=== PATIENT | male | born 1950 | race Caucasian/White ===

== ENCOUNTER 2021-03-05 15:12 | Emergency (ER) | payer OTHER ==
--- OUTSIDE RECORDS SUMMARY | 2021-03-05 15:16 | XMS REPORT | Continuity of Care Document ---
:[address] [facility] t Address [address] [place] [address] Care Team Providers Name Role Phone Chris SNYDER Attending Clinician Doctor Unassigned, Name Attending Clinician Unavailable Provider, Urgent Care Attending Clinician Unavailable Jordon Brink Attending Clinician Jordon CHRISTY Attending Clinician Unavailable Ajibade_O_AH Attending Clinician Unavailable Ige-Odunuga_J_AH Attending Clinician Unavailable Ajibade_O_AH Admitting Clinician Unavailable Ige-[place]_J_AH Admitting Clinician Unavailable Payers Payer Name Policy Type Policy Number Effective Date Expiration Date S kristine [employer] [place] [id number] 2020 CLASSIC/VALUE 00:00:00 BCBS TRADITIONAL [id number] 2016 00:00:00 WELLFORMERLY [facility] [id number] 2019 [place] (MEDICARE 00:00:00 REPLACEMENT/ADVANTA GE - HMO) Problems Condition Condition Condition Status Onset Resolution Last Treating Co mments Source Name Details Category Date Date Treatment Clinician Date Obstructiv Obstructiv Disease Active U nivers e sleep e sleep 8-11 ity of apnea apnea 00:00: [address] Right knee Right knee Disease Active U nivers pain pain 2-09 ity of 00:00: [address] Calf Calf Disease Active Univers swelling swelling 1-24 ity of 00:00: [address] Swelling Swelling Disease Active Unive rs of lower of lower 1-24 [place] Leg DVT Leg DVT Disease Active Univers (deep (deep 1-24 ity of venous venous 00:00: [place] thromboemb thromboemb 00 Me dical olism), olism), Branch chronic, chronic, right right Essential Essential Disease Active Uni vers hypertensi hypertensi 1-15 it y of on on 00:00: [address] Allergic Allergic Disease Active Unive rs rhinitis rhinitis 1-15 ity of 00:00: [address] Allergies, Adverse Reactions, Alerts Allergy Allergy Status Severity Reaction(s) Onset Inactive Treating Comm ents Source Name Type Date Date Clinician NO KNOWN Drug Active Univers ALLERGIE Class ity of S [facility] Social History Social Habit Start Date Stop Date Quantity Comments Source Exposure to Not sure [facility] (event) [place] Tobacco use and 2020-08-21 2020-08-21 Never used Universit y of exposure 00:00:00 00:00:00 [facility] Alcohol intake 2020-08-21 2020-08-21 Current University of 00:00:00 00:00:00 non-drinker of [facility] alcohol (finding) [place] Tobacco Comment 2015-04-04 2015-04-04 Stopped 30 years Uni versity of 00:00:00 00:00:00 ago [facility] Alcohol Comment 2015-04-04 2015-04-04 occasional Universit y of 00:00:00 00:00:00 [facility] Sex Ass[birth year] At [birth year] Universit y of 00:00:00 00:00:00 [facility] Smoking Status Start Date Stop Date Source Never smoker [facility] Medications Ordered Filled Start Stop Current Ordering Indication Dosage Frequency Signature Comments Components Source Medication Medication Date Date Medication? Clinician (SIG) Name Name acetaminoph No 975mg 975 mg, U nivers en 08-22 06-04 Oral, ity of (TYLENOL) 18:15: 17:25 ONCE, 1 [place] tablet 975 00 :00 dose, Fri Medi brnedan mg 08/22/20 at Branch 1315, SHARMIN dextrometho Yes [id number] 10mL Take 10 mL Univers rphan-guaif 6-04 by mouth ity of enesin 00:00: every 6 [place] 10-100 mg/5 00 (six) Medical mL solution hours as Bran ch needed for Cough. azithromyci 0 Yes [id number] 250mg Take 1 Univers n 6-04 tablet by ity of (ZITHROMAX 00:00: mouth [place] Z-KIKO) 250 00 SEE-INSTRU Med ical mg tablet CTIONS. Branch Take 500 mg day 1, then 250 mg days 2 to 5. montelukast 0 Yes [id number] 10mg Take 1 Univers (SINGULAIR) 6-04 tablet by ity of 10 mg 00:00: mouth once [place] tablet 00 daily as Medical needed Branch (symptoms) . loratadine 0 Yes [id number] 10mg Take 1 Univers 10 mg 6-04 tablet by ity of tablet 00:00: mouth [place] 00 daily. Medical Branch benzonatate 0 Yes [id number] 100mg Take 1 Univers (TESSALON 6-03 capsule by ity of GARETTES) 100 00:00: mouth 3 [place] mg capsule 00 (three) Medica l times Branch daily. azelastine 0 Yes [id number] 1{spray Use 1 Univers 137 mcg 6-03 } [place] in ity of (0.1 %) 00:00: each [place] nasal spray 00 nostril 2 Med ical (two) Branch times daily. Use in each nostril as directed benzonatate 2020-0 Yes [id number] 100mg Take 1 Univers (TESSALON 6-03 capsule by ity of PERLES) 100 00:00: mouth 3 [place] mg capsule 00 (three) Medica l times Branch daily. azelastine 2020-0 Yes [id number] 1{spray Use 1 Univers 137 mcg 6-03 } [place] in ity of (0.1 %) 00:00: each [place] nasal spray 00 nostril 2 Med ical (two) Branch times daily. Use in each nostril as directed benzonatate 2020-0 Yes [id number] 100mg Take 1 Univers (TESSALON 6-03 capsule by ity of PERLES) 100 00:00: mouth 3 [place] mg capsule 00 (three) Medica l times Branch daily. azelastine Yes [id number] 1{spray Use 1 Univers 137 mcg 6-03 } [place] in ity of (0.1 %) 00:00: each [place] nasal spray 00 nostril 2 Med ical (two) Branch times daily. Use in each nostril as directed metFORMIN Yes 1000mg Take 1,000 Univers 1,000 mg 4-28 mg by ity of tablet 00:00: mouth 2 [place] (two) Medical times Branch daily with meals. metFORMIN Yes 1000mg Take 1,000 Univers 1,000 mg 4-28 mg by ity of tablet 00:00: mouth 2 [place] (two) Medical times Branch daily with meals. metFORMIN Yes 1000mg Take 1,000 Univers 1,000 mg 4-28 mg by ity of tablet 00:00: mouth 2 [place] (two) Medical times Branch daily with meals. aspirin 81 Yes 81mg Take 81 mg U nivers mg chewable 8-10 by mouth ity of tablet 14:07: daily. [address] aspirin 81 Yes 81mg Take 81 mg U nivers mg chewable 8-10 by mouth ity of tablet 14:07: daily. [address] aspirin 81 Yes 81mg Take 81 mg U nivers mg chewable 8-10 by mouth ity of tablet 14:07: daily. [address] furosemide Yes 40mg Take 1 Unive rs 40 mg 8-10 tablet by ity of tablet 00:00: mouth [address] [facility] Branch furosemide Yes 40mg Take 1 Unive rs 40 mg 8-10 tablet by ity of tablet 00:00: mouth [place] 00 daily. Medical Branch furosemide Yes 40mg Take 1 Unive rs 40 mg 8-10 tablet by ity of tablet 00:00: mouth [address] [facility] Branch triamcinolo Yes Apply to U nivers ne 0.1% in 09-22 affected ity o f eucerin 00:00: area(s) 2 [place] (COMPOUNDED 00 (two) Medical ) cream times Branch daily. Compounded : Kenalog 100mg in 240cc Eucerin cream [facility] Yes Apply to U nivers ne 0.1% in 09-22 affected ity o f eucerin 00:00: area(s) 2 [place] (COMPOUNDED 00 (two) Medical ) cream times Branch daily. Compounded : Kenalog 100mg in 240cc Eucerin cream triamcinolo Yes Apply to U nivers ne 0.1% in 09-22 affected ity o f eucerin 00:00: area(s) 2 [place] (COMPOUNDED 00 (two) Medical ) cream times Branch daily. Compounded : Kenalog 100mg in 240cc Eucerin cream clindamycin 2020- No 300mg Take 1 Un danay 300 mg 09-22 capsule by ity of capsule 00:00: 00:00 mouth 4 [place] 00 :00 (four) Medical times Branch daily. traMADOL No 50mg Take 1 Univer s (ULTRAM) 50 09-04 tablet by it y of mg tablet 00:00: 00:00 mouth [place] 00 :00 every 6 Medical (six) Branch hours as needed for Pain (scale 4-6). lisinopril- Yes [id number] 1{tbl} Take 1 Univers hydrochloro 2-08 tablet by ity of thiazide 00:00: mouth [place] 20-12.5 mg 00 daily. Medical per tablet Branch lisinopril- Yes [id number] 1{tbl} Take 1 Univers hydrochloro 2-08 tablet by ity of thiazide 00:00: mouth [place] 20-12.5 mg 00 daily. Medical per tablet Branch lisinopril- Yes [id number] 1{tbl} Take 1 Univers hydrochloro 2-08 tablet by ity of thiazide 00:00: mouth [place] 20-12.5 mg 00 daily. Medical per tablet Branch benzonatate 2020- No [id number] 100mg Take 1 Univers (TESSALON 04-28- capsule by ity of PERLES) 100 00:00: 00:00 mouth 3 [place] mg capsule 00 :00 (three) Medica l times Branch daily. loratadine 2020- No [id number] 10mg Take 1 Univers 10 mg 04-28- tablet by ity of tablet 00:00: 00:00 mouth [place] 00 :00 daily. Medical Branch Vitamin B12 Vitamin B12 Yes Sammy [address] [facility] [facility] [place] [facility] Furosemide Furosemide Yes Sammy [address] [facility] [place] once daily [facility] swelling [facility] Potassium Potassium Yes Sammy [address] [facility] [place] [facility] Aspir-81 Aspir-81 Yes Sammy [address] [place] [facility] Metformin Metformin Yes Sammy [address] HCl HCl [place] with meals [facility] Gabapentin Gabapentin Yes Sammy [address] [facility] [place] before [facility] Atorvastati Atorvastati Yes Sammy [address] n Calcium n Calcium [place] [facility] Lisinopril Lisinopril Yes Sammy [address] [facility] [place] [facility] Vitamin D3 Vitamin D3 Yes Sammy as C [facility] [place] directed [facility] Immunizations Ordered Filled Immunization Date Status Comments [facility] e Immunization Name Name Prevnar 13 Prevnar 13 2018-05-[address] [facility] - -Pneumonia Vaccine -Pneumonia Vaccine 00:00:00 [facility] Vital Signs Vital Name Observation Time Observation Value Comments Source Systolic blood 2020-08-22 19:00:00 124 mm[Hg] Univer sity of pressure [facility] Diastolic blood 2020-08-22 19:00:00 75 mm[Hg] Unive ity of [facility] Heart rate 2020-08-22 19:00:00 90 /min [facility] Respiratory rate 2020-08-22 19:00:00 23 /min [facility] Oxygen saturation in 2020-08-22 19:00:00 96 /min [facility] Arterial blood by [facility] Pulse oximetry Branch Body temperature 2020-08-22 18:13:[address] [facility] Body weight 2020-08-22 16:39:00 158.759 kg [facility] BMI 2020-08-22 16:39:00 47.47 kg/m2 [facility] Systolic blood 2020-08-21 20:41:00 147 mm[Hg] Univer sit of pressure [facility] Diastolic blood 2020-08-21 20:41:00 83 mm[Hg] [facility] Heart rate 2020-08-21 20:38:00 84 /min [facility] Body temperature 2020-08-21 20:38:[address] [facility] Respiratory rate 2020-08-21 20:38:00 18 /min [facility] Body height 2020-08-21 20:38:00 182.9 cm [facility] Body weight 2020-08-21 20:38:00 158.759 kg [facility] BMI 2020-08-21 20:38:00 47.47 kg/m2 [facility] Oxygen saturation in 2020-08-21 20:38:00 95 /min [facility] blood by [facility] Pulse oximetry Branch Procedures Procedure Date / Time Performed Performing Clinician Sour e URINALYSIS 2020-08-22 18:12:00 Kun Sexton [facility] COVID-19 (ID NOW RAPID 2020-08-22 17:30:00 Kun Sexton [facility] TESTING) [facility] LACTIC ACID WHOLE 2020-08-22 17:28:00 Kun Sexton [facility] BLOOD [facility] TROPONIN I 2020-08-22 17:27:00 Kun Sexton [facility] HEPATIC FUNCTION PANEL 2020-08-22 17:27:00 Kun Sexton [facility] ([id number]) Medical Branch (ALB,T.PRO,BILI T,BU/BC,ALT,AST,ALK PHOS) BASIC METABOLIC PANEL 2020-08-22 17:27:00 Kun Sexton [facility] (NA, K, CL, CO2, Medical Branch GLUCOSE, BUN, CREATININE, CA) CBC WITH DIFF 2020-08-22 17:27:00 Kun Sexton [facility] RAPID STREP SCREEN FOR 2020-08-22 17:27:00 Kun Sexton [facility] GROUP A Medical [place] ADC,CLC OR LCC ONLY - 2020-08-22 17:27:00 Kun Sexton [facility] INFLUENZA A & B DIRECT Medical B ranch ANTIGEN N-TERMINAL PRO-BNP 2020-08-22 17:27:00 Kun Sextonit y of [facility] XR CHEST 1 VW 2020-08-22 17:19:38 Kun Sexton [place] o f [facility] NOTICE OF PRIVACY 2020-08-22 16:27:36 Doctor Unassigned, No Univ [facility] PRACTICES Name Medical Branch POCT GRP A STREP 2020-08-21 00:00:00 Pao Christy [facility] ([facility]) [facility] Encounters Start End Encounter Admission Attending Care Care Encounter Source Date/Time Date/Time Type Type Clinicians Facility Department ID 2021-01-18 Emergency [facility] [id number] [facility]-12[facility]11 2020-12-11 Out[id number] [facility] 2020-12-05 2020-12-05 Outpatient [facility] [id number] [facility] 2020-11-28 2020-11-28 [facility] [id number] 2020-11-18 2020-11-18 Outpatient [facility] [id number] [facility] 2020-11-18 2020-11-18 Outpatient [facility] [id number] [facility] 2020-08-22 2020-08-22 Emergency Chris [facility] [id number] Univers 11:37:00 14:44:00 Kun Hannah [id number] i Dianelys [id number] [facility] [id number] [place] [id number] Branch 2020-08-22 2020-08-22 Orders Doctor STRAUSS [id number] Univers 00:00:00 00:00:00 Only Unassigned, LIVAN [id number] ity of [facility] [id number] [place] as [id number] [address] 2020-08-22 2020-08-22 Outpatient [facility] [id number] [facility] 2020-08-21 2020-08-21 Urgent Provider, [facility] Urgent Care [facility] [id number] Univers 15:33:52 16:22:38 Pao Potter [facility] [id number] ity of [place] [id number] [place] as Professio [id number] [address] Office [address] 2020-08-21 2020-08-21 Outpatient R [facility] [id number] Univers 15:40:00 15:40:00 [id number] ity [facility] 2020-08-21 2020-08-21 [facility] [id number] Univers 15:40:00 15:40:[address] [facility] 2020-08-14 2020-08-14 Outpatient [facility] [id number] [facility] 2020-05-16 2020-05-16 Outpatient [facility] [id number] [facility] 2020-04-28 2020-04-28 Outpatient [facility] [id number] [facility] 2020-04-21 2020-04-21 Outpatient [facility] [id number] [facility] 2020-04-14 2020-04-14 Outpatient [facility] [id number] [facility] 2020-03-31 2020-03-31 [id number] 2020-03-25 2020-03-25 [facility] [id number] 2020-03-24 2020-03-24 [facility] [id number] 2020-02-12 2020-02-12 [facility] [id number] 2020-02-07 2020-02-07 [facility] [id number] 2019-11-15 2019-11-15 Outpatient Ajibade_O_A VFP VFP [id number] [facility] 04:44:00 04:44:00 H [id number] Family Practic e 2019-11-15 2019-11-15 Outpatient Ajibade_O_A VFP VFP [id number] [facility] 04:44:00 04:44:00 H [id number] Family Practic e 2019-11-15 2019-11-15 Outpatient Ajibade_O_A VFP VFP [id number] [facility] 04:44:00 04:44:00 H [id number] Family Practic e 2019-11-07 2019-11-07 [facility] [id number] 10:41:00 10:41:00 t [facility] [place] [facility] Medicine Outpati ent Clinics 2019-11-07 2019-11-07 [facility] [id number] 08:30:00 08:30:00 t [facility] Medicine l Medicine Outpati ent Clinics 2019-08-07 2019-08-07 [facility] [id number] 08:45:00 08:45:00 t [facility] [place] [facility] Medicine Outpati ent Clinics 2019-08-07 2019-08-07 [facility] [id number] 08:15:00 08:15:00 t [employer] [facility] Medicine l Medicine Outpati ent Clinics 2019-05-09 2019-05-09 Outpatient Ige-Odunuga VFP VFP [id number] [facility] 07:23:00 07:23:00 _J_AH [id number] Family Practic e 2019-05-09 2019-05-09 Outpatient Ige-[place] VFP VFP [id number] [facility] 07:23:00 07:23:00 _J_AH [id number] Family Practic e 2019-03-07 2019-03-07 [facility] [id number] 13:15:00 13:15:00 t [employer] [facility] Medicine l Medicine Outpati ent Clinics 2019-02-27 2019-02-27 [facility] [id number] 17:01:00 17:01:00 t [employer] [facility] Medicine l Medicine Outpati ent Clinics 2018-12-13 2018-12-13 [facility] [id number] 10:45:00 10:45:00 t [employer] [facility] Medicine l Medicine Outpati ent Clinics 2018-12-05 2018-12-05 [facility] [id number] 10:43:00 10:43:00 t [employer] [facility] Medicine l Medicine Outpati ent Clinics 2018-11-28 2018-11-28 [facility] [id number] 10:28:00 10:28:00 t [employer] [facility] Medicine l Medicine Outpati ent Clinics 2018-09-08 2018-09-08 [facility] [id number] 10:58:00 10:58:00 t [employer] [facility] Medicine l Medicine Outpati ent Clinics 2018-05-24 2018-05-24 [facility] [id number] 11:15:00 11:15:00 t [place] [employer] [facility] Medicine l Medicine Outpati ent Clinics 2017-11-18 2017-11-18 [facility] [id number] 10:49:00 10:49:00 [facility] 2017-11-17 2017-11-17 [facility] [id number] 13:00:00 13:00:00 [facility] 2017-08-17 2017-08-17 [facility] [id number] 13:00:00 13:00:00 [facility] Results Test Description Test Time Test Comments Results Result Comments Source Urinalysis 2020-08-22 18:50:15 Test Item Value Reference Range Interpretation Comme nts APPEARANCE (test code = Clear Clear 1397769210) COLOR (test code = 1294929920) Yellow Yellow PH (test code = 4227080572) 4.8-8.0 SP GRAVITY (test code = 1.003-1.030 1981237082) GLU U QUAL (test code = Normal Normal 9036622037) BLOOD (test code = 1616021659) Negative Negative KETONES (test code = 1104756377) Negative Negative PROTEIN (test code = 2887-8) Negative Negative UROBILIN (test code = 2.0 mg/dL Normal A 6301989654) BILIRUBIN (test code = Negative Negative 6364223526) NITRITE (test code = 5154811234) Negative Negative LEUK OSMAN (test code = Negative Negative 7469515946) RBC/HPF (test code = 1278213562) See_Comment [Automated message] The system which ge nerated this result transmit morteza reference range: 0 - 3 HP F. The reference range was not used to interpret th is result as normal/abnormal . WBC/HPF (test code = 5244197268) <1 See_Comment [Automated message] The system which ge nerated this result transmit morteza reference range: 0 - 5 HP F. The reference range was not used to interpret th is result as normal/abnormal . BACTERIA (test code = Negative Negative 1130316533) MUCOUS (test code = 5367566715) Slight Negative LPF A SQ EPITH (test code = HPF 8116129105) Lab Interpretation (test code = Abnormal 76969-5) [facility] - INFLUENZA A & B DIRECT [id number] 18:25:12 Test Item Value Reference Range Interpretation Comments Influenza A (test code = 57526-4) Negative Negative Influenza B (test code = 75311-4) Negative Negative Lab Interpretation (test code = Normal 53696-6) [facility] FOR GROUP [id number] 18:19:32 Test Item Value Reference Range Interpretation Comments Streptococcus pyogenes (group A) Negative Negative antigen (test code = 32010-6) Lab Interpretation (test code = Normal 23387-1) [facility] [id number] 18:17:39 Test Item Value Reference Range Interpretation Comments TROPONIN I (test 0.000 ng/mL See_Comment [Automated code = 8081802507) message] The system which generated this result transmitted reference range : <=0.034. The reference range was not used to interpret this result as normal/abnormal . OTONIEL (test code = Equal or Less than OTONIEL) 0.034 ng/ml---Normal ?Note: Cardiac troponin begins to rise 3-4 hours after the onset of ischemia. Repeat in 4-6 hours if the sample was drawn within 3-4 hours of the onset of the symptom and found normal. Between 0.035 and 0.120 ng/mL--- Borderline. Questionable myocardial injury or necrosis ? ?Note: Serial measurement may be necessary to confirm or exclude the diagnosis of myocardial injury or necrosis; Clinical correlation (symptoms, EKGs, imaging studies, and others) required; Repeat in 4-6 hours if clinically indicated. ? Equal or Higher than 0.121 ng/mL---Abnormal. Myocardial Injury or Necrosis Likely ? Biotin has been reported to cause a negative bias, interpret results relative to patient's use of biotin. ? Lab Interpretation Normal (test code = 40972-5) [id number] 18:14:39 Test Item Value Reference Range Interpretation Comments NT-proBNP (test code 154 pg/mL See_Comment H [Autom ated = 6872622712) message] The system which generated this result transmitted reference range : <=125. The reference range was not used to interpret this result as normal/abnormal . OTONIEL (test code = OTONIEL) Biotin has been reported to cause a negative bias, interpret results relative to patient's use of biotin. Lab Interpretation Abnormal (test code = 39348-5) [facility] 1 [id number] 18:07:21 Low lung volume without infiltrate. RL 4728 CHEST SINGLE VIEW CLINICAL HISTORY: Short of breath ORDERING PHYSICIAN: ZARA SEXTON TECHNIQUE: Frontal view of chest COMPARISON: None available. FINDINGS: The cardiac silhouette is within normal limits. ?Low lung volumes withoutdiscrete infiltrate. Osseous structures are normal. [facility], Radiant Results Inft User - 08/22/2020 1:08 PM CDTFormatting of this note might be different from theoriginal.CHEST SINGLE VIEWCLINICAL HISTORY: Short of breathORDERING PHYSICIAN: KUN SEXTONTECHNIQUE: Frontal view of chestCOMPARISON: None available.FINDINGS:The cardiac silhouette is within normal limits. Low lung volumes withoutdiscrete infiltrate. Osseous structures are normal. IMPRESSIONLow lung volume without infiltrate.RL 4728 [facility] (NA, K, CL, CO2, GLUCOSE, BUN, CREATININE, CA)2020-08-22 18:06:40 Test Item Value Reference Range Interpretation Comments NA (test code = 139 mmol/L 135-145 6454722901) K (test code = 3.6 mmol/L 3.5-5.0 1839086542) CL (test code = 104 mmol/L 98-108 7012476389) CO2 TOTAL (test code = 29 mmol/L 23-31 7109464195) AGAP (test code = 2-16 0940175804) BUN (test code = 10 mg/dL 7-23 9610571282) GLUCOSE (test code = 115 mg/dL 70-110 H 6905276792) CREATININE (test code = 0.92 mg/dL 0.60-1.25 2470634294) CALCIUM (test code = 9.0 mg/dL 8.6-10.6 3507042605) eGFR (test code = mL/min/1.73m2 3924060342) OTONIEL (test code = OTONIEL) Association of Glomerular Filtration Rate (GFR) and Staging of Kidney Disease* + --+ --+ ------+| GFR (mL/min/1.73 m2) ?| With Kidney Damage ?| ?Without Kidney Damage+ --------+ --------+ +| ?>90 ?| ?Stage one ?| ? Normal ?+ ---+ ---+ -------+| ?60-89 ?| ?Stage two ?| ? Decreased GFR ? + --+ --+ ------+| ?30-59 ?| ?Stage three ?| ? Stage three ? + --+ --+ ------+| ?15-29 ?| ?Stage four ? | ? Stage four ?+ ---+ ---+ -------+| ?<15 (or dialysis) ? ?| ?Stage five ? | ? Stage five ?+ ---+ ---+ -------+ *Each stage assumes the associated GFR level has been in effect for at least three months. ?Stages 1 to 5, with or without kidney disease, indicate chronic kidney disease. Notes: Determination of stages one and two (with eGFR >59mL/min/1.73 m2) requires estimation of kidney damage for at least three months as defined by structural or functional abnormalities of the kidney, manifested by either:Pathological abnormalities or Markers of kidney damage (including abnormalities in the composition of the blood or urine or abnormalities in imaging tests). Lab Interpretation Abnormal (test code = 76733-8) [facility] (ALB, T.PRO, BILI T, BU/BC, ALT, AST, ALK PHOS)2020-08-22 18:06:40 Test Item Value Reference Range Interpretation Comments TOTAL BILI (test code = 5908925044) 0.7 mg/dL 0.1-1.1 BILI UNCON (test code = 9624609624) 0.6 mg/dL 0.1-1.1 BILI CONJ (test code = 8962584021) 0.0 mg/dL 0.0-0.3 T PROTEIN (test code = 9057684090) 7.1 g/dL 6.3-8.2 ALBUMIN (test code = 6587028961) 3.7 g/dL 3.5-5.0 ALK PHOS (test code = 8946159991) 81 U/L 34-122 ALTv (test code = 1742-6) 15 U/L 5-50 AST(SGOT) (test code = 0210891187) 18 U/L 13-40 Lab Interpretation (test code = Normal 52225-0) [facility]ID [facility])2020-08-22 18:02:55 Test Item Value Reference Range Interpretation Comments SARS-CoV-2 Rapid ID NOW Not Detected Not Detected (test code = 52693-1) OTONIEL (test code = OTONIEL) ID NOW COVID-19 Assay is an isothermal nucleic acid amplification test intended for the qualitative detection of nucleic acid from SARS-CoV-2 viral RNA in nasopharyngeal (FOOD EQUIPMENT SERVICE TECHNICIAN) specimens. It is used under Emergency Use Authorization (EUA) by FDA. The limit of detection (LOD) of the assay is 125 Genome Equivalents/mL. A positive result is indicative of the presence of SARS-CoV-2 RNA. ?Clinical correlation with patient history and other diagnostic information is necessary to determine patient infection status. A negative (Not Detected) result does not preclude SARS-CoV-2 infection. In patients with clinical symptoms and other tests that are consistent with SARS-CoV-2 infection, negative results should be treated as presumptive negative and a new specimen should be tested with alternative PCR molecular test. Invalid: Please collect a new specimen for repeat patient testing if clinically indicated. Lab Interpretation Normal (test code = 05907-0) [facility] with [id number] 17:47:54 Test Item Value Reference Range Interpretation Comments WBC (test code = See_Comment [Automated 4967-2) message] The sy stem which generated this result transmitted reference range : 4.20 - 10.70 10*3/?L. The reference range was not used to interpret this result as normal/abnormal . RBC (test code = See_Comment [Automated 801-8) message] The sy stem which generated this result transmitted reference range : 4.26 - 5.52 10*6/?L. The reference range was not used to interpret this result as normal/abnormal . HGB (test code = 12.9 g/dL 12.2-16.4 718-7) HCT (test code = 40.1 % 38.4-49.3 4544-3) MCV (test code = 86.6 fL 81.7-95.6 787-2) MCH (test code = 27.9 pg 26.1-32.7 785-6) MCHC (test code = 32.2 g/dL 31.2-35.0 786-4) RDW-SD (test code = 44.3 fL 38.5-51.6 16847-6) RDW-CV (test code = 14.1 % 12.1-15.4 788-0) PLT (test code = See_Comment [Automated 777-3) message] The sy stem which generated this result transmitted reference range : 150 - 328 10*3/ ?L. The reference r sharla was not used to interpret this result as normal/abnormal . MPV (test code = 10.4 fL 9.8-13.0 68816-2) NRBC/100 WBC (test See_Comment [Automat ed code = 1114751345) message] The system which generated this result transmitted reference range : 0.0 - 10.0 /100 WBCs. The refer ence range was not u sed to interpret th is result as normal/abnormal . NRBC x10^3 (test code <0.01 See_Comment [Auto mated = 1528616458) message] The s ystem which generated this result transmitted reference range : 10*3/?L. The reference range was not used to interpret this result as normal/abnormal . GRAN MAT (NEUT) % 73.4 % (test code = 770-8) IMM GRAN % (test code 0.40 % = 0441940364) LYMPH % (test code = 14.2 % 736-9) MONO % (test code = 8.8 % 5905-5) EOS % (test code = 2.6 % 713-8) BASO % (test code = 0.6 % 706-2) GRAN MAT x10^3(ANC) 7.47 10*3/uL 1.99-6.95 H (test code = 1085754133) IMM GRAN x10^3 (test 0.04 10*3/uL 0.00-0.06 code = 9360754265) LYMPH x10^3 (test code 1.45 10*3/uL 1.09-3.23 = 731-0) MONO x10^3 (test code 0.90 10*3/uL 0.36-1.02 = 742-7) EOS x10^3 (test code = 0.26 10*3/uL 0.06-0.53 711-2) BASO x10^3 (test code 0.06 10*3/uL 0.01-0.09 = 704-7) Lab Interpretation Abnormal (test code = 68430-8) [facility] Whole [id number] 17:34:52 Test Item Value Reference Range Interpretation Comments LACTIC ACID (test code = 1.69 mmol/L 0.50-2.20 7014962485) Lab Interpretation (test code = Normal 92356-6) [facility]2020-08-21 20:56:00 Test Item Value Reference Range Interpretation Comments POCT GP A STREP (test code = negative Negative - Negative 78966-9) [facility]"
[2021-03-05] MEDS ORDERED: LIDOCAINE 1% MPF 5 ML VIAL ONE ×2 (16:41→16:42)
[2021-03-05] MEDS ORDERED: BUPIVACAINE 0.5% PF 10 ML VIAL ONE (16:41)
[2021-03-05] MEDS ORDERED: TETANUS & DIPHTHERIA TOX,ADULT 0.5 ML VIAL ONE (16:41)
--- NOTE | 2021-03-05 17:43 | EDPHYS ---
Physician Documentation [facility] Name: Andrew Muñoz Age: 70 yrs Sex: Male : 1950 Arrival Date: 03/05/2021 Time: 15:15 Bed 5 Private MD: Juan Pablo [facility] ED Physician Doyle Tamez HPI: 03/05 16:40 This 70 yrs old Male presents to ER via Ambulatory with complaints of splinter in cp fingernail. 16:40 The patient or guardian reports a puncture wound, wood splinter, foreign body. The cp complaints affect the nailbed of right fourth finger. Onset: The symptoms/episode began/occurred 9 day(s) ago. Associated signs and symptoms: Pertinent negatives: cyanosis distally, decreased sensation distally, fever. 16:40 Severity of symptoms: in the emergency department the symptoms are unchanged, despite cp home interventions. Historical: - Allergies: 15:45 No Known Allergies; iw - Home Meds: 15:45 Lisinopril Oral [Active]; blood thinner [Active]; iw - PMHx: 15:45 Hypertensive disorder; Hypercholesterolemia; iw - PSHx: 15:45 None; iw - Immunization history:: Client reports receiving the 2nd dose of the Covid vaccine. - Social history:: Smoking status: Patient denies any tobacco usage or history of. ROS: 16:45 MS/extremity: Positive for puncture, of the proximal nailbed of right fourth finger, cp foreign body. 16:45 Constitutional: Negative for body aches, chills, fever, poor PO intake. cp 16:45 Cardiovascular: Negative for chest pain. 16:45 Respiratory: Negative for cough, shortness of breath. 16:45 Abdomen/GI: Negative for abdominal pain, nausea, vomiting, and diarrhea. 16:45 All other systems are negative. Exam: 16:50 Constitutional: The patient appears in no acute distress, alert, awake, non-toxic, well cp developed, well nourished. 16:50 Head/Face: Normocephalic, atraumatic. cp 16:50 Cardiovascular: Rate: normal. 16:50 Respiratory: the patient does not display signs of respiratory distress, Respirations: normal, no use of accessory muscles. 16:50 Abdomen/GI: Exam negative for discomfort, distension, guarding, Inspection: obese cp 16:50 Musculoskeletal/extremity: Nails: puncture wound noted to nailbed right fourth finger with splinter foreign body, no erythema, no drainage, minimal swelling noted distal phalanx right fourth finger. Vital Signs: 15:43 BP 154 / 74; Pulse 82; Resp 16; Temp 97.3; Pulse Ox 99% ; Weight 158.76 kg; Height 5 iw ft. 11 in. (180.34 cm); 18:00 BP 147 / 69; Pulse 79; Resp 18; Temp 97.5; Pulse Ox 99% ; bp 15:43 Body Mass Index 48.81 (158.76 kg, 180.34 cm) iw Procedures: 17:39 Foreign Body Removal: sliver of wood, from the nailbed of right fourth finger, by using cp alligator clamps, The patient tolerated the removal well. MDM: 16:28 Patient medically screened. cp 17:00 Differential diagnosis: cellulitis, foreign body, abscess. cp 17:42 Data reviewed: vital signs, nurses notes. cp 17:42 Counseling: I had a detailed discussion with the patient and/or guardian regarding: the cp historical points, exam findings, and any diagnostic results supporting the discharge/admit diagnosis, to return to the emergency department if symptoms worsen or persist or if there are any questions or concerns that arise at home. Response to treatment: foreign body removed, and as a result, I will discharge patient. 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 Exp: bp 08/01/2022. Lot #: [id number]. } Route: IM; Site: left deltoid; 17:48 Follow up: Response: No adverse reaction bp Disposition: 18:00 Chart complete. cp 19:52 Co-signature as Attending Physician, Doyle Tamez MD I agree with the assessment and kdr plan of care. Disposition Summary: 03/05/21 17:43 Discharge Ordered Location: Home cp Problem: new cp Symptoms: have improved cp Condition: Stable cp Diagnosis - Puncture wound with foreign body of other finger without damage to nail, initial cp encounter - right fourth finger Followup: cp - With: Galo Reynoso MD - When: 2 - 3 days - Reason: Worsening of condition Discharge Instructions: - Discharge Summary Sheet cp - Puncture Wound cp - Hand or Foot Foreign Body, Adult cp Forms: - Medication Reconciliation Form cp - Thank You Letter cp - Antibiotic Education cp - Prescription Opioid Use cp Prescriptions: - Doxycycline Hyclate 100 mg Oral Tablet - take 1 tablet by ORAL route every 12 hours; 20 tablet; Refills: 0, Product cp Selection Permitted - Naprosyn 500 mg Oral Tablet - take 1 tablet by ORAL route 2 times per day take with food; 20 tablet; Refills: cp 0, Product Selection Permitted Signatures: Doyle Tamez MD MD kdr Stephanie Torres, STEVE RN iw Davie Barclay PA PA cp Lance Mayer, RN RN bp
--- NOTE | 2021-03-05 17:43 | ER ---
Nurse's Notes [facility] Name: Andrew Muñoz Age: 70 yrs Sex: Male : 1950 Arrival Date: 03/05/2021 Time: 15:15 Bed 5 Private MD: Sammy Almeida Diagnosis: Puncture wound with foreign body of other finger without damage to nail, initial encounter-right fourth finger Presentation: 03/05 15:43 Chief complaint: Patient states: wood splinter under right ring fingernail since last iw Tuesday. Coronavirus screen: At this time, the client does not indicate any symptoms associated with coronavirus-19. Ebola Screen: Patient negative for fever greater than or equal to 101.5 degrees Fahrenheit, and additional compatible Ebola Virus Disease symptoms Patient denies exposure to infectious person. Patient denies travel to an Ebola-affected area in the 21 days before illness onset. No symptoms or risks identified at this time. Initial Sepsis Screen: Does the patient meet any 2 criteria? No. Patient's initial sepsis screen is negative. Does the patient have a suspected source of infection? No. Patient's initial sepsis screen is negative. Risk Assessment: Do you want to hurt yourself or someone else? Patient reports no desire to harm self or others. Onset of symptoms was February 24, 2021. 15:43 Method Of Arrival: Ambulatory iw 15:43 Acuity: MARK 4 iw Triage Assessment: 15:45 General: Appears in no apparent distress. uncomfortable, obese, Behavior is calm, bp cooperative, appropriate for age. Pain: Complains of pain in right ring finger. EENT: No deficits noted. Neuro: No deficits noted. Cardiovascular: No deficits noted. Respiratory: No deficits noted. GI: No signs and/or symptoms were reported involving the gastrointestinal system. : No signs and/or symptoms were reported regarding the genitourinary system. Derm: No deficits noted. Musculoskeletal: No deficits noted. Injury Description: Foreign body is located right ring finger is a splinter. Historical: - Allergies: 15:45 No Known Allergies; iw - Home Meds: 15:45 Lisinopril Oral [Active]; blood thinner [Active]; iw - PMHx: 15:45 Hypertensive disorder; Hypercholesterolemia; iw - PSHx: 15:45 None; iw - Immunization history:: Client reports receiving the 2nd dose of the Covid vaccine. - Social history:: Smoking status: Patient denies any tobacco usage or history of. Screenin:00 Abuse screen: Denies threats or abuse. Denies injuries from another. Nutritional bp screening: No deficits noted. Tuberculosis screening: No symptoms or risk factors identified. Fall Risk None identified. Assessment: 16:00 General: SEE TRIAGE NOTE. bp 18:00 Reassessment: PT D/C HOME AMBULATORY, DX WITH PUNCTURE WOUND WITH FOREIGN BODY. bp Vital Signs: 15:43 BP 154 / 74; Pulse 82; Resp 16; Temp 97.3; Pulse Ox 99% ; Weight 158.76 kg; Height 5 iw ft. 11 in. (180.34 cm); 18:00 BP 147 / 69; Pulse 79; Resp 18; Temp 97.5; Pulse Ox 99% ; bp 15:43 Body Mass Index 48.81 (158.76 kg, 180.34 cm) iw ED Course: 15:15 Patient arrived in ED. am2 15:15 Sammy Almeida DO is Private Physician. am2 15:44 Triage completed. iw 15:49 Lance Mayer, STEVE is Primary Nurse. bp 15:55 Arm band placed on Patient placed in an exam room, on a stretcher. ll1 16:00 Patient has correct armband on for positive identification. Bed in low position. Call bp light in reach. Side rails up X2. 16:28 Davie Barclay PA is PHCP. cp 16:28 Doyle Tamez MD is Attending Physician. cp 17:30 Assist provider with foreign body removal of a splinter from right RING FINGER using bp hemostats, Set up for procedure. Performed by Davie SOLANO Dressed with gauze bandage, Patient tolerated well. 17:40 Galo Reynoso MD is Referral Physician. cp 18:00 Patient did not have IV access during this emergency room visit. 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 Exp: bp 08/01/2022. Lot #: [id number]. } Route: IM; Site: left deltoid; 17:48 Follow up: Response: No adverse reaction bp Outcome: 17:43 Discharge ordered by MD. simba 18:03 Discharged to home ambulatory. bp 18:03 Condition: stable 18:03 Discharge instructions given to patient, Instructed on discharge instructions, follow up and referral plans. medication usage, wound care, Demonstrated understanding of instructions, follow-up care, medications, wound care, Prescriptions given X 2. 18:04 Patient left the ED. bp Signatures: Stephanie Torres, RN RN iw Davie Barclay, RUSS PA Natividad Chase am2 Lance Mayer RN RN bp Franklin Edmond RN RN ll1
[2021-03-05 18:21] VITALS: O2SAT 99
[2021-03-05 18:22] VITALS: BP 147/69; TEMP 97.5
== END 2021-03-05 18:04 | disposition home or self-care (01) ==
LOC: ER 15:12
DX: S60.454A Superficial foreign body of right ring finger, initial encounter (principal); I10 Essential (primary) hypertension; E78.00 Pure hypercholesterolemia, unspecified; W45.8XXA Other foreign body or object entering through skin, initial encounter; Y92.009 Unspecified place in unspecified non-institutional (private) residence as the place of occurrence of the external cause; Z23 Encounter for immunization
CPT/HCPCS: 90471; 90714; 99283

== ENCOUNTER 2024-03-26 14:02 | Emergency (ER) | payer OTHER ==
--- NOTE | 2024-03-26 15:34 | RAD REPORT ---
EXAMINATION: CT ABDOMEN AND PELVIS WITHOUT CONTRAST CLINICAL INDICATION: Abdominal pain left flank pain TECHNIQUE: CT abdomen and pelvis was performed, as per department protocol. IV contrast and oral was not administered.Axial, sagittal and coronal reconstructions were obtained. One or more of the following dose reduction techniques were used: Automated exposure control, adjustment of the mA and/o r kV according to the patient size, and/or iterative reconstruction. Unless otherwise specified, incidental findings do not require dedicated imaging follow-up. [id number]. COMPARISON: No prior exam. FINDINGS: The lack of intravenous and oral contrast limits evaluation of solid organs, vessels and bowel. 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 No hydronephrosis. A genitourinary calculus is. Bladder wall is thickened with stra nding in the adjacent fat. No evidence of diverticulitis Mild anterior subluxation L5 on S1. Spondylosis lumbar spine results in spinal stenosis. Laxity of the left lateral abdominal wall musculature. IMPRESSION: Bladder wall thickening. Stranding in the adjacent fat. This may indicate inflammation
[2024-03-26 15:52] LABS: Specific Gravity 1.021 (1.005-1.030); Sqamous Epithelial <5 /HPF (None Seen); Urine Bacteria <20 /HPF (<20); Urine Bilirubin NEGATIVE (Negative); Urine Blood 3+ (Negative); Urine Clarity Extremely Turbid (Clear); Urine Color Yellow (Yellow); Urine Crystals Unidentified Few /HPF (None Seen); Urine Culture Reflex Order REFLEXED; Urine Glucose NEGATIVE (Negative); Urine Ketones 1+ (Negative); Urine Micro Reflex YN NO BILL MICROSCOPIC; Urine Mucus Slight /HPF (None Seen); Urine Nitrite NEGATIVE (Negative); Urine Protein 1+ (Negative); Urine RBC >50 /HPF (None Seen); Urine Urobilinogen 2+ (Normal); Urine WBC >50 /HPF (<5); Urine WBC Clump Rare /HPF (None Seen); Urine Yeast (Budding) Trace /HPF (None Seen)
[2024-03-26 15:59] LABS: Absolute Lymphocytes (CBC) 0.8 K/uL (0.7-4.9); Absolute Monocytes 0.7 K/uL (0.1-1.3); Absolute Neutrophil 4.8 K/uL (1.8-8.0); Basophils % 0.5 % (0-1.3); Hemoglobin 13.9 g/dL (13.6-17.9); Lymphocytes % 12.5 % (15.3-44.8); MCH 28.1 pg (27.0-35.0); MCHC 33.1 g/dL (32.0-36.0); MCV 84.8 fL (80-100); MPV 8.9 fL (7.6-11.3); Monocytes % 10.8 % (3.3-12.3); Neutrophils % 76.2 % (41.7-73.7); Platelets 224 thou/uL (152-406); RBC Red Blood Cell Count 4.96 M/uL (4.33-5.43); Red Cell Distribution Width 14.1 % (12.1-15.2)
--- NOTE | 2024-03-26 16:27 | ER ---
Nurse's Notes [facility] Name: Andrew Muñoz Age: 73 yrs Sex: Male : 1950 Arrival Date: 03/26/2024 Time: 14:02 Bed 25 Private MD: Diagnosis: UTI/ Urinary tract infection, site not specified Presentation: 03/26 14:23 Chief complaint: Left flank pain, blood in urine, and dysuria x 2-3 days. Coronavirus hb screen: At this time, the client does not indicate any symptoms associated with coronavirus-19. Ebola Screen: No symptoms or risks identified at this time. Initial Sepsis Screen: Does the patient meet any 2 criteria? No. Patient's initial sepsis screen is negative. Does the patient have a suspected source of infection? No. Patient's initial sepsis screen is negative. Risk Assessment: Do you want to hurt yourself or someone else? Patient reports no desire to harm self or others. Onset of symptoms was March 24, 2024. 14:23 Method Of Arrival: Ambulatory hb 14:23 Acuity: MARK 3 hb Historical: - Allergies: 14:25 No Known Allergies; hb - PMHx: 14:25 Hypercholesterolemia; Hypertensive disorder; hb Screenin:46 [facility] ED Fall Risk Assessment (Adult) History of falling in the last 3 months, jb4 including since admission No falls in past 3 months (0 pts) Confusion or Disorientation No (0 pts) Intoxicated or Sedated No (0 pts) Impaired Gait No (0 pts) Mobility Assist Device Used No (0 pt) Altered Elimination No (0 pt) Score/Fall Risk Level 0 - 2 = Low Risk Oriented to surroundings, Maintained a safe environment. Abuse screen: Denies threats or abuse. Nutritional screening: No deficits noted. Tuberculosis screening: No symptoms or risk factors identified. Assessment: 15:00 General: Appears in no apparent distress. comfortable, Behavior is calm, cooperative, jb4 appropriate for age. Pain: Denies pain. Neuro: Level of Consciousness is awake, alert, obeys commands, Oriented to person, place, time, situation. Cardiovascular: Patient's skin is warm and dry. Respiratory: Airway is patent Respiratory effort is even, unlabored, Respiratory pattern is regular, symmetrical. Derm: Skin is intact, Skin is pink, warm \T\ dry. Musculoskeletal: Circulation, motion, and sensation intact. Range of motion: intact in all extremities. 16:17 Reassessment: Patient appears in no apparent distress at this time. Patient and/or jb4 family updated on plan of care and expected duration. Pain level reassessed. Patient is alert, oriented x 3, equal unlabored respirations, skin warm/dry/pink. Patient denies pain at this time. Vital Signs: 14:23 BP 131 / 76; Pulse 89; Resp 20; Temp 99(O); Pulse Ox 98% on R/A; Weight 158.76 kg; hb Height 5 ft. 11 in. ; Pain 6/10; 14:23 Body Mass Index 48.81 (158.76 kg, 180.34 cm) hb 14:23 Pain Scale: Adult hb ED Course: 14:05 Patient arrived in ED. im 14:06 John King MD is Attending Physician. ec2 14:25 Triage completed. hb 15:00 Patient has correct armband on for positive identification. Bed in low position. Call jb4 light in reach. Side rails up X 1. Provided Education on: ;plan of care. 15:06 CT Abd/Pelvis - Without Contrast In Process Unspecified. EDMS 15:37 UAM Sent. jb4 15:45 Inserted saline lock: 20 gauge in right hand, using aseptic technique. Blood collected. jb4 15:51 BMP Sent. jb4 15:51 CBC with Diff Sent. jb4 16:45 Michael Barnes, RN is Primary Nurse. jb4 16:47 No provider procedures requiring assistance completed. IV discontinued, intact, jb4 bleeding controlled, No redness/swelling at site. Pressure dressing applied. Administered Medications: 16:42 Drug: Trimethoprim-Sulfamethoxazole PO (160 mg-800 mg (DS) 1 tablet PO once Route: PO; jb4 16:42 Follow up: Response: Medication administered at discharge. jb4 16:43 Not Given (Patient Refused): [id number] mg IVP once jb4 Outcome: 16:26 Discharge ordered by . ec2 16:47 Discharged to home via wheelchair, with family, jb4 16:47 Condition: stable 16:47 Discharge instructions given to patient, Instructed on discharge instructions, follow up and referral plans. medication usage, Demonstrated understanding of instructions, follow-up care, medications, Prescriptions given X 1, 16:47 Patient left the ED. jb4 Signatures: Dispatcher [employer] Samantha Durham RN RN hb Bryson, James, RN RN jb4 Ally Sims Edwin, MD MD ec2
--- NOTE | 2024-03-26 16:27 | EDPHYS ---
Physician Documentation [facility] Name: Andrew Muñoz Age: 73 yrs Sex: Male : 1950 Arrival Date: 03/26/2024 Time: 14:02 Bed 25 Private MD: ED Physician John King HPI: 03/26 14:25 This 73 yrs old Male presents to ER via Ambulatory with complaints of Urinary ec2 Problem. 14:25 Patient arrives today for dysuria along with left flank pain onset of several days. No ec2 fevers or chills, no nausea or vomiting, is otherwise in his normal state of health. No significant abdominal pain. Also reports hematuria. Historical: - Allergies: 14:25 No Known Allergies; hb - PMHx: 14:25 Hypercholesterolemia; Hypertensive disorder; hb ROS: 14:25 Constitutional: as per hpi ec2 Exam: 14:25 Constitutional: GEN: NAD Head: atraumatic Eyes: EOMI Ears: External ears are ec2 normal. CV: regular rate LUNGS: no respiratory distress ABD: non-distended, obese, soft, nontender, not guarding, questionable left CVA TTP SKIN: no evidence of rashes MSK: no evidence of trauma Vital Signs: 14:23 BP 131 / 76; Pulse 89; Resp 20; Temp 99(O); Pulse Ox 98% on R/A; Weight 158.76 kg; hb Height 5 ft. 11 in. ; Pain 6/10; 14:23 Body Mass Index 48.81 (158.76 kg, 180.34 cm) hb 14:23 Pain Scale: Adult hb MDM: 14:21 Medical Screening Exam initiated ec2 14:25 Data reviewed: vital signs, nurses notes. ED course: Patient arrives today for left ec2 flank pain and hematuria along with dysuria. Examination yields abdominal findings as above. Will obtain urine studies, lab work as well as treat with Toradol and obtain CT imaging. Differential includes UTI, Marcelo, ureteral stone. 16:26 ED course: CT abdomen pelvis shows cystitis. Urine is infectious appearing. Will treat ec2 for UTI.. 03/26 14:25 Order name: CBC with Diff ec2 03/26 14:25 Order name: BMP ec2 03/26 14:25 Order name: UAM; Complete Time: 16:25 ec2 03/26 15:56 Order name: Urine Culture EDMS 03/26 14:25 Order name: CT Abd/Pelvis - Without Contrast; Complete Time: 15:41 ec2 03/26 16:00 Order name: Labs - recollect needed: recollect green top; Complete Time: 16:24 bd Administered Medications: 16:42 Drug: Trimethoprim-Sulfamethoxazole PO (160 mg-800 mg (DS) 1 tablet PO once Route: PO; jb4 16:42 Follow up: Response: Medication administered at discharge. jb4 16:43 Not Given (Patient Refused): [id number] mg IVP once jb4 Disposition Summary: 03/26/24 16:26 Discharge Ordered Notes: Location: Home ec2 Condition: Stable ec2 Diagnosis - UTI/ Urinary tract infection, site not specified ec2 Followup: ec2 - With: Private Physician - When: - Reason: Re-evaluation by your physician Discharge Instructions: - Discharge Summary Sheet ec2 - Urinary Tract Infection, Adult, [id number] ec2 Forms: - Medication Reconciliation Form ec2 - Antibiotic Education ec2 - Prescription Opioid Use ec2 - Patient Portal Instructions ec2 - Leadership Thank You Letter ec2 Prescriptions: - Bactrim DS 800-160 mg Oral Tablet - take 1 tablet ORAL route every 12 hours for 7 days; 14 tablet; Refills: 0, ec2 Product Selection Permitted Signatures: Dispatcher [employer] EDMikayla Botello Heather, STEVE RN Michael Kelley RN RN jb4 John King MD MD ec2 Corrections: (The following items were deleted from the chart) 14:25 14:25 CBC+H.LAB.BRZ ordered. EDMS EDMS 14:25 14:25 BASIC METABOLIC PANEL+C.LAB.BRZ ordered. EDMS EDMS 14:25 14:25 Urinalysis W/Microscopic+U.LAB.BRZ ordered. EDMS EDMS 14:26 14:25 Patient arrives today for dysuria along with left flank pain onset of several ec2 days. No fevers or chills, no nausea or vomiting, is otherwise in his normal state of health. No significant abdominal pain.. ec2 16:34 14:25 Jha ordered. ec2 jb4
[2024-03-26 16:29] LABS: Anion Gap 9.4 mEq/L (5.0-15.0); Potassium 3.4 mEq/L (3.5-5.1)
[2024-03-26] MEDS ORDERED: SMZ./TMP. 800/160 MG TABLET ONE (16:38)
[2024-03-26 17:04] VITALS: BP 131/76; TEMP 99; O2SAT 98
[2024-03-26 17:58] LABS: Blood Morphology Comment NOT SEEN (NOT SEEN); Platelet Estimate ADEQ; White Blood Cell Scan OK (OK)
== END 2024-03-26 16:47 | disposition home or self-care (01) ==
LOC: ER 14:02
DX: N39.0 Urinary tract infection, site not specified (principal); E78.00 Pure hypercholesterolemia, unspecified; I10 Essential (primary) hypertension
CPT/HCPCS: 36415; 74176; 80048; 81001; 85025; 87077; 87086; 87088; 87186; 99284